=== PATIENT | female | born 1965 | race Caucasian/White ===

== ENCOUNTER → 2016-12-19 | Outpatient (CLI) | payer OTHER ==
[~2016-12-19] MED LIST: ACET-783 PO; AMOX500C2 PO; BACL10TA PO; IBUP200T53 PO; OMEP20TA11 PO
--- NOTE | 2016-12-19 12:45 | DI ---
Indication: ITS.REASON: M25.561 PAIN IN RIGHT KNEE PROCEDURE: KNEE RIGHT 3 VIEWS: Encounter: Initial Comparison: None Findings: Three views of the right knee are submitted. There is no acute fracture, dislocation or malalignment identified. Impression: No acute osseous abnormality. .
== END ==
LOC: IMA 12:25
PROVIDERS: ATTEND Family Medicine
DX: M25.561 Pain in right knee (principal)

== ENCOUNTER → 2016-12-22 | Outpatient (CLI) | payer OTHER ==
--- NOTE | 2016-12-22 08:44 | DI ---
Indication: ITS.REASON: S83.206A TEAR OF MENISCUS OF KNEE, multifocal knee pain and catching sensation PROCEDURE: MRI KNEE RIGHT W/O CONTRAST: Encounter: Initial Comparison: Right knee radiographs dated December 19, 2016 Technique: Multiplanar multisequence MR imaging of the right knee was performed without contrast. Findings: The lateral meniscus is normal. Medial meniscus is normal. The ACL and PCL are intact. The MCL and lateral collateral ligament complex are intact. The extensor mechanism is normal. No acute fracture. The cartilage of the medial compartment is normal. Lateral compartment cartilage shows some partial-thickness loss on the tibial plateau. Patellofemoral compartment cartilage shows full-thickness loss in the median ridge and partial-thickness loss in both facets with areas of subchondral edema. No joint effusion or Atwood's cyst. Muscular signal intensity is normal. Impression: 1. No meniscal or ligamentous tear identified. 2. 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 .
== END ==
LOC: IMA 06:38
PROVIDERS: ATTEND Family Medicine
DX: M22.41 Chondromalacia patellae, right knee (principal)